=== PATIENT | female | born 1935 | race Caucasian/White ===

== ENCOUNTER 2017-12-01 08:02 | Emergency (ER) | payer MEDICARE ==
[~2017-12-01] VITALS: Ht 157.5 cm; Wt 71.0 kg
[~2017-12-01 08:02] MED LIST: AMIO200 PO; CARV3.125 PO; ECASA PO; FERR324T4 PO; FURO1TAB93 PO; MULTTAB12 PO; PANT40IN3 PO; PLAV75TA PO; POTA20IN3 PO; SIMV20TA PO
[2017-12-01 08:07] VITALS: BP 92/54; PULSE 81; RESP 16; TEMP 97.6; O2SAT 96
[2017-12-01 08:21] VITALS: PULSE 81; RESP 16; TEMP 97.6; O2SAT 96
--- NOTE | 2017-12-01 08:31 | PD ---
HPI Chief Complaint: General Weakness Time Seen by Provider: 08:17 Travel History International Travel<30 days: No Contact w/Intl Traveler<30days: No Traveled to known affect area: No History of Present Illness HPI This 81-year-old female fell and hit her head this morning. She felt the back of her head and she was bleeding. She has been feeling weak for several days. She has a history of atrial fibrillation. She said Dr. Katz and Dr. leahy in the last couple of days. She had been in atrial fibrillation and apparently came out of it but recently was found to be admitted again. She's been feeling sick for several days. She's had a cough. She vomited twice yesterday. Is not aware of fever. She did take Tylenol last night because she was coughing. She had a chest x-ray and blood work at [facility] yesterday. She has been short of breath for quite a while. She has never smoked. She does take Lasix. PFSH Past Medical History Hx Anticoagulant Therapy: Yes Arthritis: Yes Asthma: No Autoimmune Disease: No Heart Rhythm Problems: No Cancer: No Cardiovascular Problems: Yes (A. FIB) High Cholesterol: Yes Chemotherapy: No Chest Pain: No Congestive Heart Failure: No COPD: No Cerebrovascular Accident: Yes (tia) Diabetes: No Patient Takes Glucophage: No Diminished Hearing: No Endocrine: No Gastrointestinal Disorders: No GERD: No Genitourinary: No Headaches: No Hiatal Hernia: No Heparin Induced Thrombocytopen: No Hypertension: Yes Immune Disorder: No Implanted Vascular Access Dvce: No Kidney Stones: No Musculoskeletal: No Neurologic: No Psychiatric: No Reproductive: No Respiratory: No Immunizations Current: Yes Migraines: No Radiation Therapy: No Renal Failure: No Seizures: No Sickle Cell Disease: No Sleep Apnea: No Thyroid Disease: No Triglycerides - High: Yes Ulcer: No Tetanus Vaccination: < 5 Years ?: Not Menopausal: Yes Past Surgical History Abdominal Surgery: No AICD: No Appendectomy: Yes Arteriovenous Shunt: No Cardiac Surgery: No Ear Surgery: No Endocrine Surgery: No Eye Surgery: Yes (CATARACT) Genitourinary Surgery: No Gynecologic Surgery: No Insulin Pump: No Joint Replacement: No Neurologic Surgery: No Oral Surgery: No Pacemaker: No Thoracic Surgery: No Other Surgery: Yes (APPENDIX, BROKEN LEG, CATARACT SURGERY) Family History Family Hypercholesterolemia: Yes Social History Alcohol Use: No Tobacco Use: No ( A TEEN) Substance Use: No Allergies-Medications (Allergen,Severity, Reaction): Coded Allergies: No Known Allergies (Verified Adverse Reaction, Unknown, 12/01/17) Reported Meds & Prescriptions Reported Meds & Active Scripts Active Reported Potassium Chloride ER (Potassium Chloride) 20 Meq Tab 20 Meq PO DAILY [Multivitamin] Simvastatin 20 Mg Tab 20 Mg PO DAILY Lasix (Furosemide) 40 Mg Tab 40 Mg PO DAILY Coreg (Carvedilol) 6.25 Mg Tab 6.25 Mg PO BID Plavix (Clopidogrel Bisulfate) 75 Mg Tab 75 Mg PO DAILY Aspirin 325 Mg Tab 325 Mg PO DAILY Amiodarone (Amiodarone HCl) 400 Mg Tab 400 Mg PO BID Review of Systems General / Constitutional: No: Fever, Chills Eyes: No: Diploplia HENT: No: Headaches, Vertigo Cardiovascular: No: Chest Pain or Discomfort Respiratory: Positive: Cough Gastrointestinal: Positive: Vomiting Genitourinary: No: Urgency Musculoskeletal: Positive: Myalgias Skin: No Rash Neurologic: Positive: Weakness Psychiatric: No: Suicidal Ideations Endocrine: No: Heat Intolerance, Cold Intolerance Hematologic/Lymphatic: No: Easy Bruising Physical Exam Narrative GENERAL: Well-developed female SKIN: Focused skin assessment warm/dry. HEAD: . Normocephalic. He is a hematoma in the right occipital area. There is a 1 cm laceration at the site of the edges are well opposed and the area is not bleeding at this time EYES: Pupils equal and round. No scleral icterus. No injection or drainage. ENT: No nasal bleeding or discharge. Mucous membranes pink and moist. NECK: Trachea midline. No JVD. CARDIOVASCULAR: Irregular rate with systolic murmur RESPIRATORY: No accessory muscle use. Clear to auscultation. Breath sounds equal bilaterally. GASTROINTESTINAL: Abdomen soft, non-tender, nondistended. Hepatic and splenic margins not palpable. MUSCULOSKELETAL: No obvious deformities. No clubbing. No cyanosis. Trace edema. NEUROLOGICAL: Awake and alert. No obvious cranial nerve deficits. Motor grossly within normal limits. Normal speech. PSYCHIATRIC: Appropriate mood and affect; insight and judgment normal. Data Data Last Documented VS Vital Signs Date Time Temp Pulse Resp B/P (MAP) Pulse Ox O2 Delivery O2 Flow Rate FiO2 12/01/17 08:21 97.6 81 16 96 12/01/17 08:19 Room Air 12/01/17 08:07 92/54 (67) Orders Orders Complete Blood Count With Diff (12/01/17 08:28) Basic Metabolic Panel (Bmp) (12/01/17 08:28) Ct Brain W/O Iv Contrast(Rout) (12/01/17 08:28) B-Type Natriuretic Peptide (12/01/17 08:32) Labs Laboratory Tests Test 12/01/17 08:35 White Blood Count 8.6 TH/MM3 Red Blood Count 3.85 MIL/MM3 Hemoglobin 11.4 GM/DL Hematocrit 35.1 % Mean Corpuscular Volume 91.2 FL Mean Corpuscular Hemoglobin 29.5 PG Mean Corpuscular Hemoglobin Concent 32.4 % Red Cell Distribution Width 12.9 % Platelet Count 129 TH/MM3 Mean Platelet Volume 8.3 FL Neutrophils (%) (Auto) 74.3 % Lymphocytes (%) (Auto) 18.4 % Monocytes (%) (Auto) 6.3 % Eosinophils (%) (Auto) 0.5 % Basophils (%) (Auto) 0.5 % Neutrophils # (Auto) 6.5 TH/MM3 Lymphocytes # (Auto) 1.6 TH/MM3 Monocytes # (Auto) 0.5 TH/MM3 Eosinophils # (Auto) 0.0 TH/MM3 Basophils # (Auto) 0.0 TH/MM3 CBC Comment DIFF FINAL Differential Comment Blood Urea Nitrogen 30 MG/DL Creatinine 1.10 MG/DL Random Glucose 118 MG/DL Calcium Level 9.1 MG/DL Sodium Level 139 MEQ/L Potassium Level 4.3 MEQ/L Chloride Level 103 MEQ/L Carbon Dioxide Level 26.9 MEQ/L Anion Gap 9 MEQ/L Estimat Glomerular Filtration Rate 47 ML/MIN [facility] Medical Decision Making Medical Screen Exam Complete: Yes Emergency Medical Condition: Yes Medical Record Reviewed: Yes Differential Diagnosis Differential includes scalp laceration, hematoma, subdural, skull fracture, influenza, electrolyte imbalance Narrative Course CT is negative for subdural or fracture. I don't think this wound would benefit from sutures. The edges are opposed and it is not bleeding at this time. She is stable for discharge. I do believe she has influenza which is what has caused her weakness Diagnosis Primary Impression: Hematoma of scalp Qualified Codes: S00.03XA - Contusion of scalp, initial encounter Additional Instructions: Apply ice to swollen area, return if increasing pain Disposition: 01 DISCHARGE HOME Condition: Stable Godwin Smith MD Dec 01, 2017 08:31
[2017-12-01] MEDS ORDERED: PLAV75TA29 PO (08:36)
[2017-12-01] MEDS ORDERED: FURO1TAB60 PO (08:36)
[2017-12-01] MEDS ORDERED: POTA-163 PO (08:36)
[2017-12-01] MEDS ORDERED: AMIO400T PO (08:36)
[2017-12-01] MEDS ORDERED: ASPI-183 PO (08:36)
[2017-12-01] MEDS ORDERED: SIMV20TA PO (08:36)
[2017-12-01] MEDS ORDERED: CARV6.25 PO (08:36)
[2017-12-01] MEDS ORDERED: MULTIVITAMIN (08:36)
[2017-12-01 08:47] LABS: AUTOMATED NEUTROPHIL # 6.5 TH/MM3 (1.8-7.7); BASOPHIL % 0.5 % (0.0-2.0); EOSINOPHIL % 0.5 % (0.0-4.0); HEMATOCRIT 35.1 % (35.0-46.0); HEMOGLOBIN 11.4 GM/DL (11.6-15.3); LYMPH % 18.4 % (9.0-44.0); LYMPHOCYTE # 1.6 TH/MM3 (1.0-4.8); MEAN CELL VOLUME 91.2 FL (80.0-100.0); MEAN CORPUSCULAR HEMOGLOBIN 29.5 PG (27.0-34.0); MEAN CORPUSCULAR HGB CONC 32.4 % (32.0-36.0); MEAN PLATELET VOLUME 8.3 FL (7.0-11.0); MONO % 6.3 % (0.0-8.0); MONOCYTE # 0.5 TH/MM3 (0-0.9); NEUT % 74.3 % (16.0-70.0); PLATELET COUNT 129 TH/MM3 (150-450); RED BLOOD COUNT 3.85 MIL/MM3 (4.00-5.30); RED CELL DISTRIBUTION WIDTH 12.9 % (11.6-17.2); WHITE BLOOD COUNT 8.6 TH/MM3 (4.0-11.0)
--- NOTE | 2017-12-01 08:51 | RADRPT ---
EXAM DATE/TIME: 12/01/2017 08:37 [facility] COMPARISON: CT BRAIN W/O CONTRAST, February 22, 2016, 15:17. INDICATIONS : Trauma. Fell and hit back of head this morning. Laceration. RADIATION DOSE: 60.26 CTDIvol (mGy) MEDICAL HISTORY : Cerebrovascular disease. Cardiovascular disease Hypertension. SURGICAL HISTORY : Appendectomy. ENCOUNTER: Initial ACUITY: 1 day PAIN SCALE: 4/10 LOCATION: cranial TECHNIQUE: Multiple contiguous axial images were obtained of the head. Using automated exposure control and adj ustment of the mA and/or kV according to patient size, radiation dose was kept as low as reasonably a chievable to obtain optimal diagnostic quality images. DICOM format image data is available electro nically for review and comparison. FINDINGS: CEREBRUM: Areas of low attenuation in the periventricular white matter. Old right basal ganglia lacunar infarct s. The ventricles are normal for age. No evidence of midline shift, mass lesion, hemorrhage or acute infarction. No extra-axial fluid collections are seen. POSTERIOR FOSSA: The cerebellum and brainstem are intact. The 4th ventricle is midline. The cerebellopontine angle i s unremarkable. EXTRACRANIAL: The visualized portion of the orbits is intact. Right parietal scalp hematoma. SKULL: The calvaria is intact. No evidence of skull fracture. CONCLUSION: 1. Right parietal scalp hematoma. 2. Nonspecific white matter changes. 3. Old lacunar infarcts on the right. Markel Cantor MD on December 01, 2017 at 8:47 Board Certified Radiologist. This report was verified electronically.
[2017-12-01 08:53] LABS: CALCIUM 9.1 MG/DL (8.5-10.1)
[2017-12-01 08:54] LABS: BICARBONATE 26.9 MEQ/L (21.0-32.0)
[2017-12-01 08:57] LABS: CREATININE 1.1 MG/DL (0.50-1.00)
[2017-12-01 09:18] VITALS: BP 119/43
== END 2017-12-01 09:31 | disposition home or self-care (01) ==
LOC: PHED 08:02
DX: S00.03XA Contusion of scalp, initial encounter (principal); I48.91 Unspecified atrial fibrillation; E78.00 Pure hypercholesterolemia, unspecified; I10 Essential (primary) hypertension; R06.02 Shortness of breath; W19.XXXA Unspecified fall, initial encounter
CPT/HCPCS: 70450; 80048; 83880; 85025; 99284

== ENCOUNTER 2017-12-01 13:59 | Observation (INO) | payer MEDICARE ==
[~2017-12-01] VITALS: Ht 157.5 cm; Wt 73.2 kg
[~2017-12-01 13:59] MED LIST changes: +AMIO400T PO; +ASPI-183 PO; +CARV6.25 PO; +FURO1TAB60 PO; +MULTIVITAMIN; +PLAV75TA29 PO; +POTA-163 PO
[2017-12-01 14:10] VITALS: BP 120/60; PULSE 80; RESP 16; TEMP 97.8; O2SAT 93
--- NOTE | 2017-12-01 14:54 | PD ---
HPI Chief Complaint: Fall Time Seen by Provider: 14:18 Travel History International Travel<30 days: No Contact w/Intl Traveler<30days: No Traveled to known affect area: No History of Present Illness HPI The patient was seen and examined in the presence of the nurse. This patient was seen here this morning when she had a fall and struck her head. It was unclear as to why she had that fall. She was discharged home around 10 AM. About 4 hours later she was in her bathroom and got dizzy and lightheaded and collapsed. She struck her chin on the ground. She denies LOC. She is positive she was awake during the whole event. She does not have headache or neck pain at this time. She does have history of A. fib. Currently she is on aspirin and Plavix therapy. She saw her window/distribution clerk yesterday and was getting switched to a novel anticoagulant which she has not started yet. She did not have any chest pain. Severity is moderate. Duration 5 minutes. No alleviating factors. No exacerbating factors. PFSH Past Medical History Hx Anticoagulant Therapy: Yes (PLAVIX) Arthritis: Yes Asthma: No Autoimmune Disease: No Heart Rhythm Problems: No Cancer: No Cardiovascular Problems: Yes (A.FIB, CHOL) High Cholesterol: Yes Chemotherapy: No Chest Pain: No Congestive Heart Failure: No COPD: No Cerebrovascular Accident: Yes (tia) Diabetes: No Patient Takes Glucophage: No Diminished Hearing: No Endocrine: No Gastrointestinal Disorders: No GERD: No Genitourinary: No Headaches: No Hiatal Hernia: No Heparin Induced Thrombocytopen: No Hypertension: Yes Immune Disorder: No Implanted Vascular Access Dvce: No Kidney Stones: No Musculoskeletal: No Neurologic: No Psychiatric: No Reproductive: No Respiratory: No Immunizations Current: Yes Migraines: No Radiation Therapy: No Renal Failure: No Seizures: No Sickle Cell Disease: No Sleep Apnea: No Thyroid Disease: No Triglycerides - High: Yes Ulcer: No Tetanus Vaccination: < 5 Years ?: Not Menopausal: Yes Past Surgical History Abdominal Surgery: No AICD: No Appendectomy: Yes Arteriovenous Shunt: No Cardiac Surgery: No Ear Surgery: No Endocrine Surgery: No Eye Surgery: Yes (CATARACT) Genitourinary Surgery: No Gynecologic Surgery: No Insulin Pump: No Joint Replacement: No Neurologic Surgery: No Oral Surgery: No Pacemaker: No Thoracic Surgery: No Other Surgery: Yes (APPENDIX, BROKEN LEG, CATARACT SURGERY) Family History Family Hypercholesterolemia: Yes Social History Alcohol Use: No Tobacco Use: No ( A TEEN) Substance Use: No Allergies-Medications (Allergen,Severity, Reaction): Coded Allergies: No Known Allergies (Verified Adverse Reaction, Unknown, 12/01/17) Reported Meds & Prescriptions Reported Meds & Active Scripts Active Reported Potassium Chloride ER (Potassium Chloride) 20 Meq Tab 20 Meq PO DAILY [Multivitamin] Simvastatin 20 Mg Tab 20 Mg PO DAILY Lasix (Furosemide) 40 Mg Tab 40 Mg PO DAILY Coreg (Carvedilol) 6.25 Mg Tab 6.25 Mg PO BID Plavix (Clopidogrel Bisulfate) 75 Mg Tab 75 Mg PO DAILY Aspirin 325 Mg Tab 325 Mg PO DAILY Amiodarone (Amiodarone HCl) 400 Mg Tab 400 Mg PO BID Review of Systems General / Constitutional: No: Fever Eyes: No: Visual changes HENT: Positive: Lightheadedness, No: Headaches Cardiovascular: Positive: Irregular Rhythm, No: Chest Pain or Discomfort Respiratory: No: Shortness of Breath Gastrointestinal: No: Abdominal Pain Genitourinary: No: Dysuria Musculoskeletal: Positive: Weakness, No: Pain Skin: No Rash Neurologic: Positive: Weakness, Dizziness Psychiatric: No: Depression Endocrine: No: Polydipsia Hematologic/Lymphatic: No: Easy Bruising Physical Exam Narrative GENERAL: Well-nourished, well-developed patient in no apparent distress. SKIN: Focused skin assessment reveals no rash and nodules. Skin is Warm and dry. HEAD: Has a posterior scalp hematoma. Normocephalic. There is a linear abrasion on her chin. No bony crepitus or instability. EYES: Pupils equal and round. No scleral icterus. No injection or drainage. ENT: No nasal bleeding or discharge. Mucous membranes pink and moist. Has a bruise on the inside of her lower lip but no laceration to repair. NECK: Trachea midline. No JVD. No midline tenderness CARDIOVASCULAR: Irregularly irregular rhythm. No murmur appreciated. RESPIRATORY: No accessory muscle use. Clear to auscultation. Breath sounds equal bilaterally. GASTROINTESTINAL: Abdomen soft, non-tender, nondistended. Hepatic and splenic margins not palpable. MUSCULOSKELETAL: No obvious deformities. No clubbing. No cyanosis. No edema. NEUROLOGICAL: Awake and alert. No obvious cranial nerve deficits. Motor grossly within normal limits. Normal speech. PSYCHIATRIC: Appropriate mood and affect; insight and judgment normal. Data Data Last Documented VS Vital Signs Date Time Temp Pulse Resp B/P (MAP) Pulse Ox O2 Delivery O2 Flow Rate FiO2 12/01/17 14:16 16 93 Nasal Cannula 2.00 12/01/17 14:10 97.8 80 120/60 (80) MDM Medical Decision Making Medical Screen Exam Complete: Yes Emergency Medical Condition: Yes Medical Record Reviewed: Yes Differential Diagnosis Cardiac arrhythmia, A. fib with RVR, vasovagal episode, Narrative Course I have reviewed the patient's electronic medical record. Reviewed her visit from a few hours ago including lab studies and brain CT IV placed Patient is neurologically intact. We have lab studies from a few hours ago which I don't feel nearly repeated She had 2 near syncopal events today with fall and head injury in a frail 81- year-old who lives alone. May have been arrhythmia. At this point she is in A. fib and rate controlled I think she should be a telemetry observation. Call placed to [facility] to discuss. Diagnosis Primary Impression: Syncope, near Additional Impressions: Multiple falls Atrial fibrillation Qualified Codes: I48.2 - Chronic atrial fibrillation Admitting Information Admitting Physician Requests: Observation Abdirahman Coppola MD Dec 01, 2017 14:54
[2017-12-01 15:20] VITALS: BP 120/48; PULSE 85; RESP 18; O2SAT 99
[2017-12-01] MEDS ORDERED: SODIUM CHLORIDE 0.9% FLUSH 10 ML FLUSH IV FLUSH PRN (17:30)
[2017-12-01 17:54] VITALS: O2SAT 99
[2017-12-01 20:00] VITALS: BP 135/61; PULSE 88; RESP 20; TEMP 100.8; O2SAT 97; O2SAT 98
[2017-12-01] MEDS: CARVEDILOL 6.25 MG TAB PO SCH (20:53)
[2017-12-01] MEDS: SODIUM CHLORIDE 0.9% FLUSH 10 ML FLUSH IV FLUSH SCH (20:54)
[2017-12-01] MEDS: APIXABAN 5 MG TABLET PO SCH (20:54)
--- NOTE | 2017-12-01 21:58 | MH ---
cc: YUSUF DSOUZA M.D. DATE OF ADMISSION: 12/01/2017 ADMITTING DIAGNOSIS: Near syncope with multiple falls. HISTORY OF PRESENT ILLNESS Ms. Hernandez is an 81-year-old female who presented to the emergency room twice in the course of the day today. She states that initially this morning she got up to make coffee. She was actually feeling very tired and very weak. She states that as she was standing at the counter, getting ready to add sweetener to her coffee, she suddenly went down. She states that she is not sure how this happened. One minute she is standing at the counter, the next thing she is on the ground. She denies any actual loss of consciousness. She states that she was so weak she was really unable to get up from the floor. She was finally able to drag herself across to the phone and call a relative to come and help her. When she fell she hit her head and was bleeding quite significantly so she came to the emergency room to be evaluated. She states that aside from this weakness and this cough that she has had for a while now, she has had no other symptoms. In the emergency room she was evaluated and lab work did not show anything significant except for mild anemia and some renal insufficiency, and a slightly elevated BNP. CT scan that was done showed a right parietal scalp hematoma with lacunar infarcts on the right. At that time the patient felt well enough to go home and she was discharged with instructions to return if she should start feeling dizzy or weak again. The patient says that she went home. She took her morning medications. She did have some diarrhea, was in the bathroom, cleaning herself up when she states her arm was on the sink, and she was bending over cleaning herself when the next thing she knew she was back on the ground again, and again hit her head. Again she was too weak to get up and her son and the paramedics had to get her up with assistance. She states the only time she felt this way was a little bit over a year ago when she was seen at the [facility] for these episodes of weakness. She says at that time the cause was never really determined. She was seen by cardiology, went to the [facility] group therapy counselor yesterday and was diagnosed with A-fib. Her rate was controlled and she was to be starting on Eliquis which she had not started. She is already on Plavix and aspirin for prior CVA. She denies any numbness or tingling with these episodes. Her only complaint as stated is dry cough that she has had recently as well as just profound weakness. Aside from the episode of diarrhea that she had when she went home this morning, she denies any other GI problems to me. PAST MEDICAL HISTORY: Significant for: 1. Aortic stenosis which on echo has been mild. 2. Recent atrial fibrillation. 3. Coronary artery disease. 4. CVA. 5. CKD 3, with her last GFR of 52, per the office records. 6. Hypertension. 7. Hyperlipidemia. 8. 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 PAST SURGICAL HISTORY: 1. Appendectomy. 2. Cataract surgery. 3. CABG x2. ALLERGIES: Denies MEDICATIONS: From the [facility], she does not recall her medications. 1. Coreg 12.5. 2. She has a prescription for Eliquis 5 milligrams twice a day which she has not filled. 3. She is still taking her Plavix and aspirin. 4. Furosemide 40 milligrams daily. 5. Lisinopril 20 milligrams twice a day. 6. Potassium chloride 20 milliequivalents daily. 7. Simvastatin 20 milligrams daily. 8. Voltaren gel which she uses occasionally. HABITS She will drink one to two cups of coffee a day. She denies any current smoking. She does not really consume alcohol. SOCIAL HISTORY She is . She is independent in activities of daily living. She has a very good family support system with children and grandchildren locally. REVIEW OF SYSTEMS: See HPI. As stated, fatigue. She denies any weight change. Her appetite overall has been good. She denies any chest pain. She really does not get palpitations. She does state she feels a couple but she really does not feel when she is in atrial fibrillation. She does not really describe shortness of breath but she has had this cough recently, worse at night. No abdominal pain. She did have the diarrhea. She denies any lower extremity swelling. PHYSICAL EXAMINATION: VITAL SIGNS: Temperature is 97.6, pulse 81, respiratory rate 16, blood pressure 119/43, pulse oximetry is 96% on room air. GENERAL: She is alert, oriented, very pleasant, lying in the hospital bed, in no acute distress. HEENT: She has a very large scalp laceration, posterior parietal region. This looks clean right now. It has a little bit of oozing. She has a clear moist oropharynx with dentures. NECK: Supple. HEART: Irregular. Systolic ejection murmur throughout the precordium. ABDOMEN: Good bowel sounds in all four quadrants. EXTREMITIES: No clubbing, cyanosis or edema. SKIN: She does have some ecchymosis on her lower chin and lips. ASSESSMENT AND PLAN: The patient is an 81 year-old female with recurrent episodes of presyncope resulting in fall and injury over the last couple of days. She does have newly diagnosed afternoon which up until now has appeared to be rate controlled. She has been admitted to be placed on the monitor. Will monitor her overnight for any arrhythmia. Will order an echocardiogram. Will order CTA to evaluate carotids and the subclavian artery. For her hypertension, she already took her medications today. Will monitor her blood pressure. I do not think she is having any hypotensive episodes. She had not taken her blood pressure medications this morning with her first episode. For the atrial fibrillation, as stated, so far she has been rate controlled and not using medications. Of note, she was on amiodarone postoperatively after her CABG, but this had been discontinued. She already took her Plavix and aspirin this morning. Will start her on Eliquis in the a.m. given her recent fall and head injury. Further recommendations as the case develops. MD JAYLENE Guevara/SANDEEP /7:58 PM /9:15 PM
[2017-12-01] MEDS ORDERED: IOHEXOL 350 MG/ML 10 ML VIAL (for RAD DIAG) IVCONTRAST ONE (23:04)
[2017-12-02] VITALS (9 sets, daily range): BP systolic 87–127; BP diastolic 49–66; PULSE 68–98; RESP 16–22; TEMP 97.2–100.8; O2SAT 92–98
--- NOTE | 2017-12-02 00:05 | RADRPT ---
EXAM DATE/TIME: 12/01/2017 22:46 [facility] COMPARISON: No previous studies available for comparison. INDICATIONS : Syncopal episode. Evaluate for subclavian stenosis. IV CONTRAST: 70 cc Omnipaque 350 (iohexol) IV RADIATION DOSE: 42.95 CTDIvol (mGy) MEDICAL HISTORY : Cerebrovascular disease. Hypertension. SURGICAL HISTORY : None. ENCOUNTER: Initial ACUITY: 1 day PAIN SCALE: 0/10 LOCATION: neck Elevated flow velocities and ICA/CCA ratios have been found to correlate with increased degrees of vessel stenosis, calculated as percentage of diameter relative to a normal segment of distal ICA/CCA. TECHNIQUE: Volumetric scanning was performed using a multirow detector CT scanner. The data was post processed with a variety of visualization algorithms including full-volume maximum intensity projection, multip lanar sliding thin-slab reformation, curved-planar reformation, and surface-rendering techniques. Us ing automated exposure control and adjustment of the mA and/or kV according to patient size, radiatio n dose was kept as low as reasonably achievable to obtain optimal diagnostic quality images. DICOM f ormat image data is available electronically for review and comparison. FINDINGS: No abnormality is identified within the lung apices. There is bovine origin of vessels from the arch without evidence of proximal stenosis. The left vertebral artery is dominant. There is stenosis invol ving the distal left vertebral artery of 60-70%. This is in the dominant vertebral artery. Examination of the right common carotid artery demonstrates the vessel to be widely patent. There is 20-30% stenosis at the origin of the right internal carotid artery with calcific plaque present. More distally the cervical internal carotid artery is intact. Examination of the left common carotid artery demonstrates the vessel to be widely patent. There is 1 0-20% stenosis at the origin of the internal carotid artery with calcific plaque present. More distal ly the cervical internal carotid artery is intact. Percent stenosis is calculated using the diameter of the stenotic region over the diameter of the nor mal distal internal carotid artery. CONCLUSION: 1. No evidence of hemodynamic significant lesion. There is There is 20-30% stenosis on the right and There is 10-20% stenosis on the left. 2. There is 60-70% stenosis in the distal left vertebral artery which is dominant. Fortino Nuno MD on December 01, 2017 at 23:58 Board Certified Radiologist. This report was verified electronically.
[2017-12-02 06:38] LABS: AUTOMATED NEUTROPHIL # 2.7 TH/MM3 (1.8-7.7); BASOPHIL % 0.4 % (0.0-2.0); EOSINOPHIL % 0.4 % (0.0-4.0); HEMATOCRIT 30.3 % (35.0-46.0); HEMOGLOBIN 9.6 GM/DL (11.6-15.3); LYMPHOCYTE # 1.8 TH/MM3 (1.0-4.8); MEAN CELL VOLUME 91.2 FL (80.0-100.0); MEAN CORPUSCULAR HEMOGLOBIN 29.1 PG (27.0-34.0); MEAN CORPUSCULAR HGB CONC 31.9 % (32.0-36.0); MEAN PLATELET VOLUME 8.3 FL (7.0-11.0); MONO % 14.1 % (0.0-8.0); MONOCYTE # 0.7 TH/MM3 (0-0.9); NEUT % 50.1 % (16.0-70.0); PLATELET COUNT 103 TH/MM3 (150-450); RED BLOOD COUNT 3.32 MIL/MM3 (4.00-5.30); RED CELL DISTRIBUTION WIDTH 12.5 % (11.6-17.2); WHITE BLOOD COUNT 5.2 TH/MM3 (4.0-11.0)
--- NOTE | 2017-12-02 07:45 | PD.CONS ---
HPI Consult Requested By Primary Care Physician Adeola Thomas MD History of Present Illness 81-year-old female with a past medical history of mild , A. fib, CAD status post CABG 07/07, history of CVA, CAD, HTN, HLD who presented after near syncopal episodes. The patient had 2 episodes of near syncope yesterday. For the first episode she felt weak and fell to the ground. She doesn't recall losing consciousness. The second episode she felt faint and dizzy prior to falling. She does not think she lost consciousness. She denies any chest pain, shortness of breath, or palpitations with the episodes. Overnight, telemetry continues to show rate controlled A. fib and showed a single 5 beat run NSVT, the patient does feel like she might have felt a run of palpitations overnight. She does feel like she is wheezing today and denies any history of lung disease. She has had some fever overnight. Orthostatic BPs positive this a.m. (Mickey Dorado) Review of Systems Negative except as stated in the history of present illness (Mickey Dorado) Past Family Social History Allergies: Coded Allergies: No Known Allergies (Verified Allergy, Unknown, 12/01/17) Past Medical History 1. Aortic stenosis which on echo has been mild. 2. Recent atrial fibrillation. 3. Coronary artery disease. 4. CVA. 5. CKD 3, with her last GFR of 52, per the office records. 6. Hypertension. 7. Hyperlipidemia. 8. 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 Past Surgical History 1. Appendectomy. 2. Cataract surgery. 3. Cardiac catheterization 07/07 with subsequent CABG x2. Reported Medications Reported Meds & Active Scripts Active Reported Potassium Chloride ER (Potassium Chloride) 20 Meq Tab 20 Meq PO DAILY [Multivitamin] Simvastatin 20 Mg Tab 20 Mg PO DAILY Lasix (Furosemide) 40 Mg Tab 40 Mg PO DAILY Coreg (Carvedilol) 6.25 Mg Tab 6.25 Mg PO BID Plavix (Clopidogrel Bisulfate) 75 Mg Tab 75 Mg PO DAILY Aspirin 325 Mg Tab 325 Mg PO DAILY Active Ordered Medications Current Medications Medications (Trade) Dose Ordered Sig/Shawn Route Start Time Stop Time Status Last Admin (NS Flush) 2 ml UNSCH PRN IV FLUSH 12/01/17 17:30 (NS Flush) 2 ml BID IV FLUSH 12/01/17 21:00 12/01/17 20:54 Sodium Chloride 1,000 ml @ 84 mls/hr [id number] IV 12/01/17 20:00 (Coreg) 12.5 mg BID PO 12/01/17 21:00 12/01/17 20:53 (Lasix) 40 mg DAILY PO 12/02/17 09:00 (KCl) 20 meq DAILY PO 12/02/17 09:00 (Pravachol) 40 mg DAILY PO 12/02/17 09:00 (Eliquis) 5 mg BID PO 12/01/17 21:00 12/01/17 20:54 Family History Noncontributory Social History She is . She is independent in activities of daily living. She has a very good family support system with children and grandchildren locally. She will drink one to two cups of coffee a day. She denies any current smoking. She does not really consume alcohol. (Mickey Dorado) Physical Exam Vital Signs Vital Signs Date Time Temp Pulse Resp B/P (MAP) Pulse Ox O2 Delivery O2 Flow Rate FiO2 12/02/17 04:00 100.8 88 16 114/62 (79) 93 116/56 (76) 87/51 (63) 12/02/17 00:00 100.7 90 22 100/49 (66) 98 12/01/17 20:00 98 Nasal Cannula 2.00 12/01/17 20:00 100.8 88 20 135/61 (85) 97 12/01/17 17:54 99 High Flow Nasal Cannula 2.00 12/01/17 16:15 12/01/17 15:20 85 18 120/48 (72) 99 Nasal Cannula 2.00 12/01/17 14:16 16 93 Nasal Cannula 2.00 12/01/17 14:10 91 Nasal Cannula 2.00 12/01/17 14:10 97.8 80 16 120/60 (80) 93 Physical Exam GENERAL: Well-developed well-nourished. In no acute distress. NECK: No carotid bruits. No JVD. CARDIOVASCULAR: Regular rate and rhythm. Systolic murmur best appreciated at the apex. RESPIRATORY: No accessory muscle use. Diffuse wheezing worse on the left. MUSCULOSKELETAL: No clubbing or cyanosis. No edema. NEUROLOGICAL: Awake and alert. Normal speech. Laboratory Laboratory Tests Test 12/01/17 18:23 12/02/17 00:15 12/02/17 05:47 Troponin I LESS THAN 0.02 LESS THAN 0.02 White Blood Count 5.2 Red Blood Count 3.32 Hemoglobin 9.6 Hematocrit 30.3 Mean Corpuscular Volume 91.2 Mean Corpuscular Hemoglobin 29.1 Mean Corpuscular Hemoglobin Concent 31.9 Red Cell Distribution Width 12.5 Platelet Count 103 Mean Platelet Volume 8.3 Neutrophils (%) (Auto) 50.1 Lymphocytes (%) (Auto) 35.0 Monocytes (%) (Auto) 14.1 Eosinophils (%) (Auto) 0.4 Basophils (%) (Auto) 0.4 Neutrophils # (Auto) 2.7 Lymphocytes # (Auto) 1.8 Monocytes # (Auto) 0.7 Eosinophils # (Auto) 0.0 Basophils # (Auto) 0.0 CBC Comment DIFF FINAL Differential Comment (Mickey Dorado) Result Diagram: 12/02/17 0547 Assessment and Plan Assessment and Plan 81-year-old female with a past medical history of mild , A. fib, CAD status post CABG 07/07, history of CVA, CAD, HTN, HLD who presented after 2 near syncopal episodes Syncope: Possibly due to orthostasis, hold Lasix. Check echo. NSVT: 5 beat run. Ischemic evaluation with Lexiscan when wheezing improved, possibly tomorrow. Atrial fibrillation: Rate controlled. Carvedilol and Eliquis. Fever/wheezing: Nebs. Check chest x-ray. Antibiotics per primary team. (Mickey Dorado) Assessment and Plan plan for stress test tomorrow probable syncope due to orthostatic hypotension. hydration. FU 2d echo. + murmur. afib rate controlled. (Anup Barragan MD) Mickey Dorado Dec 02, 2017 07:45 Anup Barragan MD Dec 02, 2017 11:30
[2017-12-02] MEDS ORDERED: RESP: ALBUTEROL 2.5 MG/IPRATROPIUM 0.5 MG NEB (SCH) NEB ONE (08:00)
[2017-12-02] MEDS ORDERED: FUROSEMIDE 40 MG TAB PO SCH (09:00)
[2017-12-02 09:10] LABS: BICARBONATE 25.7 MEQ/L (21.0-32.0); CALCIUM 7.9 MG/DL (8.5-10.1); CREATININE 0.99 MG/DL (0.50-1.00)
--- NOTE | 2017-12-02 09:53 | RADRPT ---
EXAM DATE/TIME: 12/02/2017 08:29 [facility] COMPARISON: CHEST SINGLE AP, July 18, 2016, 5:32. INDICATIONS : Short of breath. MEDICAL HISTORY : Cardiovascular disease. Cerebrovascular disease. Hypertension. SURGICAL HISTORY : CABG. ENCOUNTER: Subsequent ACUITY: 2 days PAIN SCORE: 0/10 LOCATION: Bilateral chest FINDINGS: A single view of the chest demonstrates the lungs to be symmetrically aerated without evidence of mas s, infiltrate or effusion. Postsurgical features of prior median sternotomy. Cardiac silhouette is oumou rderline in size. Osseous structures are intact. CONCLUSION: 1. No acute cardiopulmonary disease. Van Christensen MD on December 02, 2017 at 9:50 Board Certified Radiologist. This report was verified electronically.
[2017-12-02] MEDS: PRAVASTATIN SOD 40 MG TAB PO SCH (10:22)
[2017-12-02] MEDS: POTASSIUM CHLORIDE 20 MEQ CONTROLLED RELEASE TAB PO SCH (10:22)
[2017-12-02] MEDS: APIXABAN 5 MG TABLET PO SCH ×2 (10:23→21:38)
[2017-12-02] MEDS: SODIUM CHLORIDE 0.9% FLUSH 10 ML FLUSH IV FLUSH SCH ×2 (10:23→21:32)
[2017-12-02] MEDS: SODIUM CHLOR 0.9% 1000 ML INJ 1,000 ML IV SCH ×3 (10:23→14:56)
[2017-12-02] MEDS: CARVEDILOL 6.25 MG TAB PO SCH ×2 (10:23→21:37)
[2017-12-02 11:06] LABS: BILIRUBIN, URINE NEG (NEG); BLOOD, URINE NEG (NEG); GLUCOSE,URINE NEG (NEG); KETONE, URINE TRACE mg/dL (NEG); NITRITE,URINE NEG (NEG); URINE LEUKOCYTE ESTERASE NEG (NEG)
[2017-12-02 11:27] LABS: URINE COLOR YELLOW (YELLW/STRAW)
[2017-12-02 11:28] LABS: SQUAMOUS EPITHELIAL CELL URINE 0-5 /hpf (0-5)
--- NOTE | 2017-12-02 13:11 | ECHRPT ---
Indication: SYNCOPE CONCLUSIONS The left ventricular systolic function is hyperdynamic with an estimated ejection fraction in the ra nge of 65- 70%. The left atrial size is upper limits of normal. Mild thickening of the mitral valve leaflets. Moderate mitral annular calcification. Trace mitral valve regurgitation. Mild mitral valve stenosis. Severe thickening of the aortic valve leaflets. Moderate aortic valve regurgitation. Mild aortic valve stenosis. There is trace tricuspid valve regurgitation. There is estimated mild pulmonary hypertension present (range 40-50 mmHg). BP: 87 / 51 HR: 63 Rhythm: Sinus MEASUREMENTS (Male / Female) Normal Values Technical Quality:Fair 2D ECHO LV Diastolic Diameter PLAX 4.0 cm 4.2 - 5.9 / 3.9 - 5.3 cm LV Systolic Diameter PLAX 2.4 cm IVS Diastolic Thickness 1.1 cm 0.6 - 1.0 / 0.6 - 0.9 cm LVPW Diastolic Thickness 1.1 cm 0.6 - 1.0 / 0.6 - 0.9 cm LV Relative Wall Thickness 0.6 RV Internal Dim ED PLAX 3.1 cm LVOT Diameter 1.8 cm LA Systolic Diameter LX 3.9 cm 3.0 - 4.0 / 2.7 - 3.8 cm LV Ejection Fraction MOD 4C 68.6 % LV Cardiac Index MOD 4C 834.5 cm/minm LV Ejection Fraction 4C AL 72.2 % LV Cardiac Index 4C AL 920.7 cm/minm M-MODE Aortic Root Diameter MM 2.6 cm LA Systolic Diameter MM 3.8 cm LA Ao Ratio MM 1.5 AV Cusp Separation MM 0.8 cm DOPPLER AV Peak Velocity 295.5 cm/s AV Peak Gradient 34.9 mmHg AV Mean Gradient 16.0 mmHg AV Velocity Time Integral 50.5 cm AI Peak Velocity 375.5 cm/s AI Peak Gradient 56.4 mmHg AI Pressure Half Time 410.0 ms LVOT Peak Velocity 90.2 cm/s LVOT Peak Gradient 3.3 mmHg LVOT Velocity Time Integral 18.4 cm LVOT Cardiac Index 1628.0 cm/minm AV Area Cont Eq vti 0.9 cm AV Area Cont Eq pk 0.8 cm MV Peak Velocity 218.0 cm/s MV Peak Gradient 19.0 mmHg MV Mean Velocity 97.4 cm/s MV Mean Gradient 5.0 mmHg MV Area PHT 2.4 cm LV E' Lateral Velocity 7.1 cm/s LV E' Septal Velocity 6.0 cm/s TR Peak Velocity 289.0 cm/s TR Peak Gradient 33.4 mmHg Right Atrial Pressure 10.0 mmHg Pulmonary Artery Systolic Pressu 43.4 mmHg Right Ventricular Systolic Press 43.4 mmHg PV Peak Velocity 88.2 cm/s PV Peak Gradient 3.1 mmHg FINDINGS LEFT VENTRICLE The left ventricular systolic function is hyperdynamic with an estimated ejection fraction in the ra nge of 65- 70%. Normal left ventricular size. Wall thickness is normal. No regional wall motion abnormalities are present. RIGHT VENTRICLE Normal right ventricular size and systolic function. LEFT ATRIUM The left atrial size is upper limits of normal. RIGHT ATRIUM The right atrial size is normal. ATRIAL SEPTUM Normal atrial septal thickness without atrial level shunting by limited color doppler interrogation. AORTA The aortic root and proximal ascending aorta are normal in size on limited imaging. MITRAL VALVE Mild thickening of the mitral valve leaflets. Moderate mitral annular calcification. Trace mitral valve regurgitation. Mild mitral valve stenosis. AORTIC VALVE Trileaflet aortic valve. Severe thickening of the aortic valve leaflets. Moderate aortic valve regurgitation. Mild aortic valve stenosis. TRICUSPID VALVE Structurally normal tricuspid valve. There is trace tricuspid valve regurgitation. There is estimated mild pulmonary hypertension present (range 40-50 mmHg). PULMONARY VALVE No pulmonary valve regurgitation or stenosis. VESSELS The inferior vena cava is normal in size. PERICARDIUM No pericardial effusion. Anup Barragan MD, FACC (Electronically Signed) Final Date:02 December 2017 13:10
[2017-12-02] MEDS ORDERED: SODIUM CHLOR 0.9% 1000 ML INJ 1,000 ML IV SCH (17:00)
--- NOTE | 2017-12-02 17:35 | HHI.PR ---
Subjective Remarks Wheezing last pm, still with nonproductive cough, low grade temp last night, no further diarrhea, no nausea or vomiting, no cp Objective Vitals Vital Signs Date Time Temp Pulse Resp B/P (MAP) Pulse Ox O2 Delivery O2 Flow Rate FiO2 12/02/17 15:31 85 12/02/17 12:00 98.8 68 20 109/57 (74) 92 12/02/17 09:00 97.2 81 20 116/66 (83) 93 12/02/17 08:37 92 21 12/02/17 08:23 96 12/02/17 04:00 100.8 88 16 114/62 (79) 93 116/56 (76) 87/51 (63) 12/02/17 00:00 100.7 90 22 100/49 (66) 98 12/01/17 20:00 98 Nasal Cannula 2.00 12/01/17 20:00 100.8 88 20 135/61 (85) 97 12/01/17 17:54 99 High Flow Nasal Cannula 2.00 12/02/17 12/02/17 12/03/17 15:00 23:00 07:00 Intake Total 725 ml Balance 725 ml Intake Oral 725 ml # Voids 2 # Bowel Movements 0 Result Diagram: 12/02/17 0547 12/02/17 0547 Imaging Last Impressions Chest X-Ray 12/02/17 0000 Signed Impressions: Service Date/Time: November 08:29 - CONCLUSION: 1. No acute cardiopulmonary disease. Van Christensen MD Neck CTA 12/01/17 0000 Signed Impressions: Service Date/Time: Friday, December 01, 2017 22:46 - CONCLUSION: 1. No evidence of hemodynamic significant lesion. There is There is 20-30%% stenosis on the right and There is 10-20%% stenosis on the left. 2. There is 60-70%% stenosis in the distal left vertebral artery which is dominant. Fortino Nuno MD Objective Remarks Lying in bed lungs cta hear rrr elle 2/6 +bs no c/c/e A/P Problem List: (1) (aortic stenosis) ICD Codes: I35.0 - Nonrheumatic aortic (valve) stenosis Status: Chronic Plan: mild per echo with severe thickening of leaflets (2) Blood loss anemia ICD Codes: D50.0 - Iron deficiency anemia secondary to blood loss (chronic) Status: Acute Plan: drop in hgb after multiple falls and laceration and hematoma of scalp monitor cbc (3) Syncope, near ICD Codes: R55 - Syncope and collapse Status: Acute Plan: cta unrevealing as to cause postive orthostatics this am, is on furosemide and had diarrhea yesterday, furosemide held, iv fluids had been ordered lexiscan in am (4) Multiple falls ICD Codes: R29.6 - Repeated falls Status: Acute Plan: PT eval done will need [facility] for PT (5) Atrial fibrillation ICD Codes: I48.91 - Unspecified atrial fibrillation Status: Acute Plan: so far rate controlled start eliquis started in am follow cbc and lexiscan Problem Qualifiers (1) Atrial fibrillation: Qualified Codes: I48.2 - Chronic atrial fibrillation Adeola Thomas MD Dec 02, 2017 17:35
[2017-12-02 19:15] LABS: AUTOMATED NEUTROPHIL # 2.7 TH/MM3 (1.8-7.7); BASOPHIL # 0.1 TH/MM3 (0-0.2); BASOPHIL % 1.2 % (0.0-2.0); EOSINOPHIL # 0.1 TH/MM3 (0-0.4); EOSINOPHIL % 1.9 % (0.0-4.0); HEMATOCRIT 31.8 % (35.0-46.0); HEMOGLOBIN 10.1 GM/DL (11.6-15.3); LYMPH % 36.9 % (9.0-44.0); LYMPHOCYTE # 2.2 TH/MM3 (1.0-4.8); MEAN CELL VOLUME 91.1 FL (80.0-100.0); MEAN CORPUSCULAR HEMOGLOBIN 28.9 PG (27.0-34.0); MEAN CORPUSCULAR HGB CONC 31.7 % (32.0-36.0); MEAN PLATELET VOLUME 8.2 FL (7.0-11.0); MONO % 11.5 % (0.0-8.0); MONOCYTE # 0.7 TH/MM3 (0-0.9); NEUT % 48.5 % (16.0-70.0); PLATELET COUNT 110 TH/MM3 (150-450); RED BLOOD COUNT 3.49 MIL/MM3 (4.00-5.30); RED CELL DISTRIBUTION WIDTH 12.6 % (11.6-17.2); WHITE BLOOD COUNT 5.8 TH/MM3 (4.0-11.0)
--- NOTE | 2017-12-02 20:49 | MG ---
cc: HERNANDEZ THORPE MD Lab No: Date: 12/02/17 Age: Sex: F Race: DATE OF [address] Thomas MEDICAL HISTORY History of cataracts/status post cataract surgery, arthritis, osteoporosis, double vision right eye, left inner ear infection, TIAs, dizziness, numbness left side of the neck down to the left arm, atrial fibrillation, hyperlipidemia , hypercholesterolemia admitted for two falls striking her head and other fall striking her chin, felt dizzy and lightheaded prior to the fall. The patient states that she had a seizure as a child but outgrew them. MEDICATIONS 1. Lasix. 2. Potassium. 3. Coreg 4. Eliquis. DESCRIPTION The background activity is 8-9 Hz alpha located posterior bilateral and symmetrical with posterior to anterior gradient. There is excessive movement artifact during the recording. There is an electrode artifact at the right frontal region.Hyperventilation was omitted. Photic stimulation did not elicit a driving response. There were no electrographic seizures or epileptiform discharges noted during the recording. INTERPRETATION This is a normal awake EEG. The recording is contaminated with excess movement artifact and electrode artifact of the right frontal region contaminated with muscle movement artifact. There is electrode artifact at the right frontal region. There were no electrographic seizures or epileptiform discharges noted. Clinic correlation is recommended. MD AYLA Ya/ /7:42 PM /8:32 PM [facility]PITALHerman
[2017-12-03] VITALS: BP 112/54; PULSE 85; RESP 18; TEMP 98.3; O2SAT 93
[2017-12-03 06:59] LABS: AUTOMATED NEUTROPHIL # 1.8 TH/MM3 (1.8-7.7); BASOPHIL # 0.1 TH/MM3 (0-0.2); BASOPHIL % 1.4 % (0.0-2.0); EOSINOPHIL # 0.1 TH/MM3 (0-0.4); EOSINOPHIL % 2.8 % (0.0-4.0); HEMATOCRIT 30.6 % (35.0-46.0); HEMOGLOBIN 9.8 GM/DL (11.6-15.3); LYMPH % 44.2 % (9.0-44.0); MEAN CELL VOLUME 91.6 FL (80.0-100.0); MEAN CORPUSCULAR HEMOGLOBIN 29.2 PG (27.0-34.0); MEAN CORPUSCULAR HGB CONC 31.9 % (32.0-36.0); MONO % 12.4 % (0.0-8.0); MONOCYTE # 0.6 TH/MM3 (0-0.9); NEUT % 39.2 % (16.0-70.0); PLATELET COUNT 95 TH/MM3 (150-450); RED BLOOD COUNT 3.34 MIL/MM3 (4.00-5.30); RED CELL DISTRIBUTION WIDTH 12.6 % (11.6-17.2); WHITE BLOOD COUNT 4.6 TH/MM3 (4.0-11.0)
[2017-12-03 08:00] VITALS: BP 135/69; PULSE 64; PULSE 65; RESP 20; TEMP 97.9; O2SAT 96
[2017-12-03] MEDS ORDERED: RESP: ALBUTEROL 2.5 MG/IPRATROPIUM 0.5 MG NEB (SCH) NEB ONE (08:30)
--- NOTE | 2017-12-03 08:31 | PD.CARD.PN ---
Subjective Subjective Remarks Patient still feels like she is wheezing overnight. She did have an episode last night of heart fluttering. Single 6 beat run of NSVT overnight. No further episodes of lightheadedness, dizziness, or near syncope. No chest pain. (Mickey Dorado) Objective Medications Current Medications Medications (Trade) Dose Ordered Sig/Shawn Route Start Time Stop Time Status Last Admin (NS Flush) 2 ml UNSCH PRN IV FLUSH 12/01/17 17:30 (NS Flush) 2 ml BID IV FLUSH 12/01/17 21:00 12/01/17 20:54 Sodium Chloride 1,000 ml @ 84 mls/hr [id number] IV 12/01/17 20:00 12/02/17 14:56 (Coreg) 12.5 mg BID PO 12/01/17 21:00 12/02/17 21:37 (Lasix) 40 mg DAILY PO 12/02/17 09:00 Future Hold (KCl) 20 meq DAILY PO 12/02/17 09:00 12/02/17 10:22 (Pravachol) 40 mg DAILY PO 12/02/17 09:00 12/02/17 10:22 (Eliquis) 5 mg BID PO 12/01/17 21:00 12/02/17 21:38 Vital Signs / I&O Vital Signs Date Time Temp Pulse Resp B/P (MAP) Pulse Ox O2 Delivery O2 Flow Rate FiO2 12/03/17 00:00 98.3 85 18 112/54 (73) 93 12/02/17 20:00 100.3 98 18 127/60 (82) 95 12/02/17 20:00 80 12/02/17 16:00 100.1 80 18 111/52 (71) 95 12/02/17 15:31 85 12/02/17 12:00 98.8 68 20 109/57 (74) 92 12/02/17 09:00 97.2 81 20 116/66 (83) 93 12/02/17 08:37 92 21 I/O 12/02/17 12/02/17 12/02/17 12/03/17 12/03/17 12/03/17 07:00 15:00 23:00 07:00 15:00 23:00 Intake Total 725 ml 480 ml Balance 725 ml 480 ml Intake Oral 725 ml 480 ml # Voids 2 3 # Bowel Movements 0 Physical Exam GENERAL: Well-developed well-nourished. In no acute distress. NECK: No carotid bruits. No JVD. CARDIOVASCULAR: Regular rate and rhythm. No murmur appreciated. RESPIRATORY: No accessory muscle use. Clear to auscultation. Diffuse expiratory wheezing. MUSCULOSKELETAL: No clubbing or cyanosis. No edema. NEUROLOGICAL: Awake and alert. Normal speech. Laboratory Laboratory Tests Test 12/02/17 10:40 12/02/17 19:00 12/03/17 06:23 Urine Collection Type CLEAN CATCH Urine Color YELLOW Urine Turbidity CLEAR Urine pH 6.0 Urine Specific [place] GREATER THAN 1.035 Urine Protein NEG mg/dL Urine Glucose (UA) NEG mg/dL Urine Ketones TRACE mg/dL Urine Occult Blood NEG Urine Nitrite NEG Urine Bilirubin NEG Urine Leukocyte Esterase NEG Urine WBC 3-5 /hpf Urine Squamous Epithelial Cells 0-5 /hpf Microscopic Urinalysis Comment CULT NOT INDICATED White Blood Count 5.8 TH/MM3 4.6 TH/MM3 Red Blood Count 3.49 MIL/MM3 3.34 MIL/MM3 Hemoglobin 10.1 GM/DL 9.8 GM/DL Hematocrit 31.8 % 30.6 % Mean Corpuscular Volume 91.1 FL 91.6 FL Mean Corpuscular Hemoglobin 28.9 PG 29.2 PG Mean Corpuscular Hemoglobin Concent 31.7 % 31.9 % Red Cell Distribution Width 12.6 % 12.6 % Platelet Count 110 TH/MM3 95 TH/MM3 Mean Platelet Volume 8.2 FL 8.0 FL Neutrophils (%) (Auto) 48.5 % 39.2 % Lymphocytes (%) (Auto) 36.9 % 44.2 % Monocytes (%) (Auto) 11.5 % 12.4 % Eosinophils (%) (Auto) 1.9 % 2.8 % Basophils (%) (Auto) 1.2 % 1.4 % Neutrophils # (Auto) 2.7 TH/MM3 1.8 TH/MM3 Lymphocytes # (Auto) 2.2 TH/MM3 2.0 TH/MM3 Monocytes # (Auto) 0.7 TH/MM3 0.6 TH/MM3 Eosinophils # (Auto) 0.1 TH/MM3 0.1 TH/MM3 Basophils # (Auto) 0.1 TH/MM3 0.1 TH/MM3 CBC Comment DIFF FINAL AUTO DIFF Differential Comment AUTO DIFF CONFIRMED Platelet Estimate LOW Platelet Morphology Comment NORMAL Imaging Last Impressions Chest X-Ray 12/02/17 0000 Signed Impressions: Service Date/Time: November 08:29 - CONCLUSION: 1. No acute cardiopulmonary disease. Van Christensen MD Neck CTA 12/01/17 0000 Signed Impressions: Service Date/Time: Friday, December 01, 2017 22:46 - CONCLUSION: 1. No evidence of hemodynamic significant lesion. There is There is 20-30%% stenosis on the right and There is 10-20%% stenosis on the left. 2. There is 60-70%% stenosis in the distal left vertebral artery which is dominant. Fortino Nuno MD (Mickey Dorado) Assessment and Plan Assessment and Plan 81-year-old female with a past medical history of mild , A. fib, CAD status post CABG 07/07, history of CVA, CAD, HTN, HLD who presented after 2 near syncopal episodes Syncope: Suspect due to due to dehydration and orthostasis, hold Lasix. NSVT: 5 and 6 beat runs. Ischemic evaluation with Lexiscan. Atrial fibrillation: Rate controlled. Carvedilol and Eliquis. COPD exacerbation: Wheezing on exam. Chest x-ray clear. Start scheduled nebs. IV Solu-Medrol 1. ?Antibiotics per primary team. Valvular heart disease: Mild to moderate disease seen on echocardiogram including moderate AR. (Mickey Dorado) Assessment and Plan low risk stress test no ischemia normal ef no BB due to COPD. cont CCB will sign off call with further questions thanks (Anup Barragan MD) Mickey Dorado Dec 03, 2017 08:31 Anup Barragan MD Dec 03, 2017 15:00
[2017-12-03] MEDS ORDERED: methylPREDNISolone SOD SUCC 125 MG/2 ML VIAL IV PUSH ONE (09:00)
[2017-12-03] MEDS: POTASSIUM CHLORIDE 20 MEQ CONTROLLED RELEASE TAB PO SCH (09:45)
[2017-12-03] MEDS: CARVEDILOL 6.25 MG TAB PO SCH (09:45)
[2017-12-03] MEDS: PRAVASTATIN SOD 40 MG TAB PO SCH (09:45)
[2017-12-03] MEDS: SODIUM CHLORIDE 0.9% FLUSH 10 ML FLUSH IV FLUSH SCH (09:46)
[2017-12-03] MEDS: APIXABAN 5 MG TABLET PO SCH (09:54)
[2017-12-03] MEDS ORDERED: AZITHROMYCIN INJ 500 MG in SODIUM CHLOR 0.9% 250 ML INJ 250 ML IV SCH (11:00)
[2017-12-03] MEDS ORDERED: REGADENOSON INJ 0.4 MG/5 ML SYR IV ONE (11:10)
--- NOTE | 2017-12-03 11:55 | EKG ---
Date Performed: 12/01/2017 Time Performed: 18:17:25 PTAGE: 81 years EKG: ATRIAL FIBRILLATION SEPTAL MYOCARDIAL INFARCTION ABNORMAL ECG Compared to PREVIOUS TRACING , the pastient has devloped atrial fibrillation. The criteria for septal infarct are new. The minimal nonspecific ST-T wave changes are new. PREVIOUS TRACIN07/16/2016 06. 18 DOCTOR: Lidia Estes Interpretating Date/Time 12/03/2017 11:54:53
[2017-12-03 12:00] VITALS: BP 156/62; PULSE 76; RESP 20; TEMP 98.4; O2SAT 96
--- NOTE | 2017-12-03 12:32 | RADRPT ---
EXAM DATE/TIME: 12/03/2017 10:50 [facility] COMPARISON: No previous studies available for comparison. INDICATIONS : Two episodes of near syncope. Abnormal EKG. Atrial fibrillation. DOSE: 25.6 mCi Tc99m Myoview at stress. 8.6 mCi Tc99m Myoview at rest. 0.4 mg Lexiscan STRESS SYMPTOMS: Tired and hot. EJECTION FRACTION: 55% MEDICAL HISTORY : Stroke. Hypertension. Cardiovascular disease SURGICAL HISTORY : CABG Appendectomy. ENCOUNTER: Initial ACUITY: 1 day PAIN SCALE: 0/10 LOCATION: chest TECHNIQUE: The patient underwent pharmacologic stress with infusion of prescribed dose. Continuous ECG tracing was monitored during stress. Gated SPECT imaging was performed after stress and conventional SPECT i maging was performed at rest. The examination was performed on a SPECT/CT scanner, both attenuation and non-corrected datasets were reviewed. FINDINGS: DISTRIBUTION: The maximum perfused segment at stress is in the anteroseptal wall. PERFUSION STUDY: The pattern of perfusion at stress is within normal limits. GATED STUDY: There is intact wall motion and thickening without hypokinetic or dyskinetic segments. CONCLUSION: 1. No significant reversibility to suggest ischemia. 2. Normal wall motion with ejection fraction 55%. RISK CATEGORY: Low (<1% Annual Mortality Rate) Cristi Wise MD on December 03, 2017 at 12:27 Board Certified Radiologist. This report was verified electronically.
[2017-12-03] MEDS: SODIUM CHLOR 0.9% 1000 ML INJ 1,000 ML IV SCH (13:38)
[2017-12-03] MEDS ORDERED: RESP: ALBUTEROL 2.5 MG/IPRATROPIUM 0.5 MG NEB (SCH) NEB (14:00)
[2017-12-03 14:47] VITALS: O2SAT 97
[2017-12-03 16:00] VITALS: BP 133/73; PULSE 74; RESP 20; TEMP 98.1; O2SAT 97
--- NOTE | 2017-12-03 17:56 | HHI.PR ---
Subjective Remarks Feeling weak when she walked , felt it was because she had not eaten, no palpitations, no lightheadedness. Family at bedside and remind her she had had, nausea and emesis the day before she came in Objective Vitals Vital Signs Date Time Temp Pulse Resp B/P (MAP) Pulse Ox O2 Delivery O2 Flow Rate FiO2 12/03/17 14:47 97 21 12/03/17 12:00 98.4 76 20 156/62 (93) 96 12/03/17 08:00 97.9 65 20 135/69 (91) 96 12/03/17 08:00 64 12/03/17 00:00 98.3 85 18 112/54 (73) 93 12/02/17 20:00 100.3 98 18 127/60 (82) 95 12/02/17 20:00 80 12/03/17 12/03/17 12/04/17 15:00 23:00 07:00 Intake Total 250 ml Balance 250 ml IV Total 250 ml Result Diagram: 12/03/17 0623 12/02/17 0547 Imaging Last Impressions Myocardial Perfusion Scan Nuc Med 12/03/17 0000 Signed Impressions: Service Date/Time: Sunday, December 03, 2017 10:50 - CONCLUSION: 1. No significant reversibility to suggest ischemia. 2. Normal wall motion with ejection fraction 55%%. RISK CATEGORY: Low (<1%% Annual Mortality Rate) Cristi Wise MD Chest X-Ray 12/02/17 0000 Signed Impressions: Service Date/Time: November 08:29 - CONCLUSION: 1. No acute cardiopulmonary disease. Van Christensen MD Neck CTA 12/01/17 0000 Signed Impressions: Service Date/Time: Friday, December 01, 2017 22:46 - CONCLUSION: 1. No evidence of hemodynamic significant lesion. There is There is 20-30%% stenosis on the right and There is 10-20%% stenosis on the left. 2. There is 60-70%% stenosis in the distal left vertebral artery which is dominant. Fortino Nuno MD Last Impressions Chest X-Ray 12/02/17 0000 Signed Impressions: Service Date/Time: November 08:29 - CONCLUSION: 1. No acute cardiopulmonary disease. Van Christensen MD Neck CTA 12/01/17 0000 Signed Impressions: Service Date/Time: Friday, December 01, 2017 22:46 - CONCLUSION: 1. No evidence of hemodynamic significant lesion. There is There is 20-30%% stenosis on the right and There is 10-20%% stenosis on the left. 2. There is 60-70%% stenosis in the distal left vertebral artery which is dominant. Fortino Nuno MD Objective Remarks Lying in bed lungs cta hear rrr elle 2/6 +bs no c/c/e ecchymosis lower lip, post scalp A/P Problem List: (1) (aortic stenosis) ICD Codes: I35.0 - Nonrheumatic aortic (valve) stenosis Status: Chronic Plan: mild per echo with AR with severe thickening of leaflets (2) Blood loss anemia ICD Codes: D50.0 - Iron deficiency anemia secondary to blood loss (chronic) Status: Acute Plan: drop in hgb after multiple falls and laceration and hematoma of scalp monitor cbc (3) Syncope, near ICD Codes: R55 - Syncope and collapse Status: Acute Plan: cta unrevealing as to cause postive orthostatics this am, is on furosemide and had diarrhea yesterday, furosemide held, iv fluids had been ordered lexiscan in am was negative, it would appear this may have all been due to orthostatic hypotension from emesis and diarrhea (4) Multiple falls ICD Codes: R29.6 - Repeated falls Status: Acute Plan: PT eval done will need c for PT (5) Atrial fibrillation ICD Codes: I48.91 - Unspecified atrial fibrillation Status: Acute Plan: so far rate controlled started eliquis on eliquis (6) Wheezing ICD Codes: R06.2 - Wheezing Plan: per report in am with low grade fever at night, neg cxray started on solumedrol will d/c on medrol pack and zpack Problem Qualifiers (1) Atrial fibrillation: Qualified Codes: I48.2 - Chronic atrial fibrillation Adeola Thomas MD Dec 03, 2017 17:56
[2017-12-03] MEDS ORDERED: ALBUTEROL SULFATE 90 MCG/ACT HFA 8 GM INHALER INH SCH (18:00)
[2017-12-03] MEDS ORDERED: CARV6.25 PO (18:03)
[2017-12-03] MEDS ORDERED: APIX5TAB PO (18:03)
[2017-12-03] MEDS ORDERED: AZIT250T3 PO (18:03)
[2017-12-03] MEDS ORDERED: Albuterol Hfa Inh INH (18:03)
[2017-12-03] MEDS ORDERED: MEDR4PAK PO (18:03)
--- NOTE | 2017-12-03 18:07 | HHI.FF ---
Face to Face Verification Diagnosis: (1) Syncope, near (2) Multiple falls (3) Atrial fibrillation (4) Blood loss anemia Physical Therapy Order: Evaluate and Treat, Improve ambulation, Strength and gait training I have seen patient Zenia Hernandez on 12/03/17. My clinical findings support the need for the requested home health care services because: Deconditioned w/ increased weakness High risk of falls I certify that my clinical findings support that this patient is homebound because: Unsteady gait/balance Adeola Thomas MD Dec 03, 2017 18:07
[2017-12-03] MEDS ORDERED: ACETAMINOPHEN 325 MG TAB PO ONE (19:00)
--- NOTE | 2017-12-06 16:37 | HM ---
Date Performed: 12/03/2017 Time Performed: 16:39:00 HOOKUP DATE: 12/03/17 04:39:00 PM Fri ANALYSIS START TIME: 12/03/2017 4:44:00 PM ANALYSIS END TIME: 12/04/2017 4:48:00 PM PATIENT AGE: 81 PATIENT HEIGHT PATIENT WEIGHT: 156 DRUG LIST PATIENT DIAGNOSIS: syncope TEST NARRATIVE: The patient's average heart rate was 75 BPM. Heart rates greater than 120 B PM were noted < 1% of the time. Heart rates less than 50 BPM were noted < 1% of the time. No shelly ses exceeding 2.0 seconds were noted. 29 ventricular ectopics, which represented < 1% of the tota l beat count, were noted. The highest ventricular ectopic frequency occurred from 09:00 PM to 10:00 PM Fri. During this time 4 VE(s) occurred. Ventricular ectopics were observed as 29 isolated beat(s ) only. No couplets or runs were noted. No supraventricular ectopics were noted. No episodes of ST depression (defined as -1.0 mm or more) were noted in channel 1. No episodes of ST depression (defined as -1.0 mm or more) were noted in channel 2. No episodes of ST depression (defined as -1.0 mm or more) were noted in channel 3. no diary entries TEST INTERPRETATION: Holter monitor demonstrates atrial fibrillation with controlled ventricular response. Bradycardia to 49 bpm was noted at one episode, a rare PVC was also seen. Signed by : Fortino Keane
--- NOTE | 2017-12-08 09:21 | RSPPFT ---
DATE OF PROCEDURE: 12/02/17 COMMENTS: Spirometry with FVC of 1.3, FEV1 of 0.9, FEV1/FVC ratio at 74%. A positive but non-significant response to acutely inhaled bronchodilator noted. IMPRESSION: 1. Severe airways obstruction. 2. Positive but non-significant response to acutely inhaled bronchodilator.
== END 2017-12-03 20:02 | disposition home or self-care (01) ==
LOC: PHED 13:59 → PHEDA 15:00 → PH3B 16:20
PROVIDERS: ADMIT Legal Medicine; ATTEND Legal Medicine
DX: R55 Syncope and collapse (principal); S00.03XA Contusion of scalp, initial encounter; J44.1 Chronic obstructive pulmonary disease with (acute) exacerbation; I48.2 Chronic atrial fibrillation; I47.2 Ventricular tachycardia; I25.10 Atherosclerotic heart disease of native coronary artery without angina pectoris; I12.9 Hypertensive chronic kidney disease with stage 1 through stage 4 chronic kidney disease, or unspecified chronic kidney disease; E78.5 Hyperlipidemia, unspecified; D50.0 Iron deficiency anemia secondary to blood loss (chronic); N18.3 Chronic kidney disease, stage 3 (moderate); I35.0 Nonrheumatic aortic (valve) stenosis; E78.00 Pure hypercholesterolemia, unspecified; R29.6 Repeated falls; Z95.1 Presence of aortocoronary bypass graft; Z79.82 Long term (current) use of aspirin; Z79.02 Long term (current) use of antithrombotics/antiplatelets; Z86.73 Personal history of transient ischemic attack (TIA), and cerebral infarction without residual deficits; W19.XXXA Unspecified fall, initial encounter
CPT/HCPCS: 70498; 71045; 78452; 80048; 81001; 84484; 85025; 87040; 93005; 93017; 93225; 93226; 93306; 94060; 94640; 94664; 95819; 96361; 96365; 96375; 97110; 97116; 97162; 99285; A9502; G0378; G8987; G8988; J0456; J2785; J2930; J7030; J7050; Q9967

== ENCOUNTER 2017-12-24 09:44 | Emergency (ER) | payer MEDICARE ==
[~2017-12-24] VITALS: Ht 157.5 cm; Wt 75.0 kg
[~2017-12-24 09:44] MED LIST changes: -AMIO200 PO; -AMIO400T PO; +APIX5TAB PO; -ASPI-183 PO; +AZIT250T3 PO; +Albuterol Hfa Inh INH; -CARV3.125 PO; -ECASA PO; -FERR324T4 PO; -FURO1TAB60 PO; -FURO1TAB93 PO; +MEDR4PAK PO; -MULTTAB12 PO; -PANT40IN3 PO; -PLAV75TA PO; -PLAV75TA29 PO; -POTA-163 PO; -POTA20IN3 PO
[2017-12-24 09:49] VITALS: BP 174/80; PULSE 78; RESP 18; TEMP 97.8; O2SAT 97
[2017-12-24] MEDS ORDERED: LISI-515 PO (09:52)
[2017-12-24 10:17] LABS: AUTOMATED NEUTROPHIL # 3.2 TH/MM3 (1.8-7.7); BASOPHIL # 0.1 TH/MM3 (0-0.2); BASOPHIL % 1.4 % (0.0-2.0); EOSINOPHIL # 0.1 TH/MM3 (0-0.4); EOSINOPHIL % 1.6 % (0.0-4.0); HEMATOCRIT 28.8 % (35.0-46.0); HEMOGLOBIN 9.6 GM/DL (11.6-15.3); LYMPH % 27.1 % (9.0-44.0); LYMPHOCYTE # 1.4 TH/MM3 (1.0-4.8); MEAN CELL VOLUME 92.8 FL (80.0-100.0); MEAN CORPUSCULAR HEMOGLOBIN 30.9 PG (27.0-34.0); MEAN CORPUSCULAR HGB CONC 33.2 % (32.0-36.0); MEAN PLATELET VOLUME 7.1 FL (7.0-11.0); MONO % 5.7 % (0.0-8.0); MONOCYTE # 0.3 TH/MM3 (0-0.9); NEUT % 64.2 % (16.0-70.0); PLATELET COUNT 160 TH/MM3 (150-450); RED CELL DISTRIBUTION WIDTH 15.1 % (11.6-17.2); WHITE BLOOD COUNT 5.1 TH/MM3 (4.0-11.0)
--- NOTE | 2017-12-24 10:28 | PD ---
HPI Chief Complaint: Respiratory Symptoms Time Seen by Provider: 10:09 Travel History International Travel<30 days: No Contact w/Intl Traveler<30days: No Traveled to known affect area: No History of Present Illness HPI 82-year-old female complains of epigastric abdominal pain, chest wall discomfort , chest discomfort, and dyspnea on exertion. Patient states that the symptoms started about a month ago. Patient was admitted to [facility] December 01 discharged December 03 for syncope, aortic stenosis, anemia, multiple falls, and atrial fibrillation. Patient also has history of reactive airway disease. Patient has history of arthritis, atrial fibrillation, hyperlipidemia, TIA and hypertension. Patient states that she noticed some drooping on the right eyelid this morning. Patient states that the right eye drooping resolved after she arrived to the emergency room. Patient has a nuclear stress test done last month and was normal. Patient's on Eliquis. PFSH Past Medical History Hx Anticoagulant Therapy: Yes Arthritis: Yes Asthma: No Atrial Fibrillation: Yes Autoimmune Disease: No Heart Rhythm Problems: No Cancer: No Cardiovascular Problems: Yes High Cholesterol: Yes Chemotherapy: No Chest Pain: No Congestive Heart Failure: No COPD: No Cerebrovascular Accident: Yes (tia) Coronary Artery Disease: Yes Diabetes: No Diminished Hearing: No Endocrine: No Gastrointestinal Disorders: No GERD: No Genitourinary: No Headaches: No Hiatal Hernia: No Heparin Induced Thrombocytopen: No Hypertension: Yes Immune Disorder: No Implanted Vascular Access Dvce: No Kidney Stones: No Musculoskeletal: No Neurologic: No Psychiatric: No Reproductive: No Respiratory: No Immunizations Current: Yes Migraines: No Radiation Therapy: No Renal Failure: No Seizures: No Sickle Cell Disease: No Sleep Apnea: No Thyroid Disease: No Triglycerides - High: Yes Ulcer: No Influenza Vaccination: Yes ?: Not Menopausal: Yes Past Surgical History Abdominal Surgery: No AICD: No Appendectomy: Yes Arteriovenous Shunt: No Cardiac Surgery: No Ear Surgery: No Endocrine Surgery: No Eye Surgery: Yes (CATARACT) Genitourinary Surgery: No Gynecologic Surgery: No Insulin Pump: No Joint Replacement: No Neurologic Surgery: No Oral Surgery: No Pacemaker: No Thoracic Surgery: No Other Surgery: Yes (APPENDIX, BROKEN LEG, CATARACT SURGERY) Family History Family Hypercholesterolemia: Yes Social History Alcohol Use: No Tobacco Use: No ( A TEEN) Substance Use: No Allergies-Medications (Allergen,Severity, Reaction): Coded Allergies: No Known Allergies (Verified Allergy, Unknown, 12/24/17) Reported Meds & Prescriptions Reported Meds & Active Scripts Active Coreg (Carvedilol) 6.25 Mg Tab 12.5 Mg PO BID 30 Days Eliquis (Apixaban) 5 Mg Tab 5 Mg PO BID 30 Days Reported Lisinopril 20 Mg Tab 20 Mg PO BID NEB Simvastatin 20 Mg Tab 20 Mg PO DAILY Review of Systems General / Constitutional: No: Fever Eyes: No: Visual changes HENT: No: Headaches Cardiovascular: No: Chest Pain or Discomfort Respiratory: No: Shortness of Breath Gastrointestinal: No: Abdominal Pain Genitourinary: No: Dysuria Musculoskeletal: No: Pain Skin: No Rash Neurologic: No: Weakness Psychiatric: No: Depression Endocrine: No: Polydipsia Hematologic/Lymphatic: No: Easy Bruising Physical Exam Narrative GENERAL: Well-nourished, well-developed patient. SKIN: Focused skin assessment warm/dry. HEAD: Normocephalic. EYES: No scleral icterus. No injection or drainage. NECK: Supple, trachea midline. No JVD or lymphadenopathy. CARDIOVASCULAR: Regular rate and rhythm without murmurs, gallops, or rubs. RESPIRATORY: Breath sounds equal bilaterally. No accessory muscle use. GASTROINTESTINAL: Abdomen soft, nondistended. Patient has mild tenderness and palpation epigastric area. No rebound tenderness. No mass. MUSCULOSKELETAL: No cyanosis, or edema. BACK: Nontender without obvious deformity. No CVA tenderness. Neurologic exam normal. Data Data Last Documented VS Vital Signs Date Time Temp Pulse Resp B/P (MAP) Pulse Ox O2 Delivery O2 Flow Rate FiO2 12/24/17 13:25 70 18 168/85 (112) 97 Room Air 12/24/17 09:49 97.8 Orders Orders Electrocardiogram (12/24/17 10:06) Complete Blood Count With Diff (12/24/17 10:06) Basic Metabolic Panel (Bmp) (12/24/17 10:06) Ckmb (Isoenzyme) Profile (12/24/17 10:06) Troponin I (12/24/17 10:06) Chest, Single Ap (12/24/17 10:06) Iv Access Insert/Monitor (12/24/17 10:06) Ecg Monitoring (12/24/17 10:06) Oxygen Administration (12/24/17 10:06) Oximetry (12/24/17 10:06) B-Type Natriuretic Peptide (12/24/17 10:06) D-Dimer (12/24/17 10:41) Ct Pulmonary Angiogram (12/24/17 11:37) Iohexol 350 Inj (Omnipaque 350 Inj) (12/24/17 12:09) Labs Laboratory Tests Test 12/24/17 10:00 12/24/17 12:20 White Blood Count 5.1 TH/MM3 Red Blood Count 3.10 MIL/MM3 Hemoglobin 9.6 GM/DL Hematocrit 28.8 % Mean Corpuscular Volume 92.8 FL Mean Corpuscular Hemoglobin 30.9 PG Mean Corpuscular Hemoglobin Concent 33.2 % Red Cell Distribution Width 15.1 % Platelet Count 160 TH/MM3 Mean Platelet Volume 7.1 FL Neutrophils (%) (Auto) 64.2 % Lymphocytes (%) (Auto) 27.1 % Monocytes (%) (Auto) 5.7 % Eosinophils (%) (Auto) 1.6 % Basophils (%) (Auto) 1.4 % Neutrophils # (Auto) 3.2 TH/MM3 Lymphocytes # (Auto) 1.4 TH/MM3 Monocytes # (Auto) 0.3 TH/MM3 Eosinophils # (Auto) 0.1 TH/MM3 Basophils # (Auto) 0.1 TH/MM3 CBC Comment DIFF FINAL Differential Comment Blood Urea Nitrogen 16 MG/DL Creatinine 0.70 MG/DL Random Glucose 120 MG/DL Calcium Level 8.3 MG/DL Sodium Level 143 MEQ/L Potassium Level 4.0 MEQ/L Chloride Level 112 MEQ/L Carbon Dioxide Level 25.5 MEQ/L Anion Gap 6 MEQ/L Estimat Glomerular Filtration Rate 80 ML/MIN Total Creatine Kinase 21 U/L Troponin I LESS THAN 0.02 NG/ML B-Type Natriuretic Peptide 475 PG/ML D-Dimer Quantitative (PE/DVT) 2.05 MG/L FEU [facility] Medical Decision Making Medical Screen Exam Complete: Yes Emergency Medical Condition: Yes Interpretation(s) Last Impressions CT Angiography 12/24/17 8337 Signed Impressions: Service Date/Time: Sunday, December 24, 2017 12:00 - CONCLUSION: 1. No PE is identified. 2. There are small bilateral pleural effusions with associated atelectasis. 3. There is a 3 mm noncalcified pulmonary nodule in the left upper lobe. 4. Cardiomegaly with enlargement of the right heart and reflux of contrast into the IVC and hepatic veins. These findings suggest elevated right heart pressures or tricuspid regurgitation. There is severe coronary artery calcification. 5. Mildly aneurysmal ascending and descending thoracic aorta. Abbe Lilly MD Chest X-Ray 12/24/17 1006 Signed Impressions: Service Date/Time: Sunday, December 24, 2017 10:27 - CONCLUSION: 1. Probable small right pleural effusion. 2. Cardiomegaly and previous CABG. Markel Cantor MD 1315 p.m. CBC with hemoglobin 9.6 hematocrit 28.8. GFR 80. Cardiac enzymes are normal. BNP 475. Differential Diagnosis Differential diagnosis including angina, NM, PE, pneumothorax, gastritis, PUD. Patient had transient mild drooping of the right eyelid this morning. That resolved completely now. Narrative Course 82-year-old female with epigastric abdominal pain, shortness of breath on exertion. Diagnosis Primary Impression: Abdominal pain Qualified Codes: R10.13 - Epigastric pain Additional Impression: Dyspnea Qualified Codes: R06.09 - Other forms of dyspnea Patient Instructions: General Instructions Additional Instructions: Continue with medications as directed. Follow-up with personal physician. Return if worse. Med/Other Pt SpecificInfo: No Change to Meds Disposition: 01 DISCHARGE HOME Condition: Stable Pool Boyle MD Dec 24, 2017 10:28
[2017-12-24 10:31] LABS: CHLORIDE 112 MEQ/L (98-107); SODIUM (NA) 143 MEQ/L (136-145)
[2017-12-24 10:32] VITALS: BP 140/59; PULSE 78; RESP 18; O2SAT 98
[2017-12-24 10:34] LABS: CALCIUM 8.3 MG/DL (8.5-10.1)
[2017-12-24 10:35] LABS: BICARBONATE 25.5 MEQ/L (21.0-32.0); BLOOD UREA NITROGEN 16 MG/DL (7-18); GLUCOSE,RANDOM 120 MG/DL (74-106)
--- NOTE | 2017-12-24 10:37 | RADRPT ---
EXAM DATE/TIME: 12/24/2017 10:27 [facility] COMPARISON: No previous studies available for comparison. INDICATIONS : Short of breath and chest pain MEDICAL HISTORY : Stroke. Hypertension. Cardiovascular disease SURGICAL HISTORY : CABG. Appendectomy. ENCOUNTER: Initial ACUITY: 1 month PAIN SCORE: 8/10 LOCATION: middle chest FINDINGS: A single view of the chest demonstrates the lungs to be symmetrically aerated without evidence of mas s or infiltrate. Cardiomegaly. Previous CABG. Blunting of the right costophrenic angle. The cardiome diastinal contours are unremarkable. Osseous structures are intact. CONCLUSION: 1. Probable small right pleural effusion. 2. Cardiomegaly and previous CABG. Markel Cantor MD on December 24, 2017 at 10:33 Board Certified Radiologist. This report was verified electronically.
[2017-12-24 10:38] LABS: GLOMERULAR FILTRATION RATE 80 ML/MIN (>89)
[2017-12-24 10:42] LABS: TROPONIN I LESS THAN 0.02 NG/ML (0.02-0.05)
[2017-12-24 10:50] VITALS: BP 107/60; PULSE 67; RESP 16; O2SAT 96
[2017-12-24 11:50] VITALS: BP 165/91; PULSE 87; RESP 14; O2SAT 96
[2017-12-24] MEDS ORDERED: IOHEXOL 350 MG/ML 10 ML VIAL (for RAD DIAG) IVCONTRAST ONE (12:09)
--- NOTE | 2017-12-24 12:34 | RADRPT ---
EXAM DATE/TIME: 12/24/2017 12:00 [facility] COMPARISON: No previous studies available for comparison. INDICATIONS : Short of breath. Lower chest pain. IV CONTRAST: 75 cc Omnipaque 350 (iohexol) IV RADIATION DOSE: 12.68 CTDIvol (mGy) MEDICAL HISTORY : Cardiovascular disease. Cerebrovascular disease. Hypertension. SURGICAL HISTORY : CABG Appendectomy. ENCOUNTER: Initial ACUITY: 1 month PAIN SCALE: 7/10 LOCATION: Bilateral chest TECHNIQUE: Volumetric scanning of the chest was performed using a pulmonary embolism protocol MIP images were re constructed. Using automated exposure control and adjustment of the mA and/or kV according to patien t size, radiation dose was kept as low as reasonably achievable to obtain optimal diagnostic quality images. DICOM format image data is available electronically for review and comparison. Follow-up recommendations for detected pulmonary nodules are based at a minimum on nodule size and pa tient risk factors according to Fleischner Society Guidelines. FINDINGS: PULMONARY ARTERIES: No filling defects are seen in the pulmonary arteries through the segmental level. LUNGS: There is no consolidation or pneumothorax . In the left upper lobe there is a 3 mm noncalcified pulmo nary nodule and a 3 mm calcified pulmonary nodule. Mild respiratory motion artifact is present. Compr essive atelectasis is present in the lung bases bilaterally. PLEURAE: There are small bilateral pleural effusions. MEDIASTINUM: The heart is enlarged with severe coronary artery calcification severe calcification of the mitral an nulus and aorta. Ascending aorta is aneurysmal measuring up to 4.3 cm and descending thoracic aorta i s aneurysmal measuring up to 3.2 cm. No lymphadenopathy is visualized. There is reflux of contrast in to the hepatic veins and IVC. MUSCULOSKELETAL: There are degenerative changes of the thoracic spine and patient is post median sternotomy. MISCELLANEOUS: The visualized upper abdominal organs demonstrate no acute abnormality. CONCLUSION: 1. No PE is identified. 2. There are small bilateral pleural effusions with associated atelectasis. 3. There is a 3 mm noncalcified pulmonary nodule in the left upper lobe. 4. Cardiomegaly with enlargement of the right heart and reflux of contrast into the IVC and hepatic v eins. These findings suggest elevated right heart pressures or tricuspid regurgitation. There is tristen re coronary artery calcification. 5. Mildly aneurysmal ascending and descending thoracic aorta. Abbe Lilly MD on December 24, 2017 at 12:25 Board Certified Radiologist. This report was verified electronically.
[2017-12-24 13:25] VITALS: BP 168/85; PULSE 70; RESP 18; O2SAT 97
--- NOTE | 2017-12-24 21:55 | EKG ---
Date Performed: 12/24/2017 Time Performed: 09:50:45 PTAGE: 82 years EKG: ATRIAL FIBRILLATION WITH CONTROLLED VENTRICULAR RATE NONDIAGNOSTIC Q WAVES IN THE INFERIOR LEADS SLIGHT NONSPECIFIC ST-T WAVE CHANGES Compared to previous tracing, R wave progression improved ABNORMAL RHYTHM ECG PREVIOUS TRACING : 12/01/2017 18.17 DOCTOR: Daniel Hernandez Interpretating Date/Time 12/24/2017 21:53:46
== END 2017-12-24 14:00 | disposition home or self-care (01) ==
LOC: PHED 09:44
DX: R10.13 Epigastric pain (principal); R06.02 Shortness of breath; E78.00 Pure hypercholesterolemia, unspecified; I10 Essential (primary) hypertension; I25.10 Atherosclerotic heart disease of native coronary artery without angina pectoris; I48.91 Unspecified atrial fibrillation; Z79.01 Long term (current) use of anticoagulants
CPT/HCPCS: 71045; 71275; 80048; 82550; 83880; 84484; 85025; 85379; 93005; 99285; Q9967

== ENCOUNTER → 2018-01-26 | Outpatient (CLI) | payer MEDICARE ==
[~2018-01-26] MED LIST changes: -AZIT250T3 PO; -Albuterol Hfa Inh INH; +LISI-515 PO; -MEDR4PAK PO; -MULTIVITAMIN
--- NOTE | 2018-01-27 07:20 | RSPPFT ---
DATE OF PROCEDURE: 01/26/18 COMMENTS: Spirometry shows FVC of 1.5 at 67% of predicted; FEV1 of 1.0 at 66%, FEV1/FVC ratio is decreased. Flow is decreased at FEF 25, FEF 50, FEF 75, and FEF 25-75. No response after bronchodilator treatment. Lung volumes show residual volume is decreased. TLC is decreased. Diffusion capacity is normal. Flow volume loop indicates an obstructive pattern. Room air arterial blood gases show pH of 7.44, PCO2 of 36, PO2 of 91, BiCarb of 24 and O2 Saturation at 96%. IMPRESSION: 1. Moderately severe obstructive lung disease. 2. No response after bronchodilator treatment. 3. Additional restrictive lung disease. 4. Decreased lung volumes. 5. Normal diffusion capacity. 6. Blood gases show normal oxygenation on room air.
== END ==
LOC: PHRSP 08:24
PROVIDERS: ATTEND Specialist
DX: J44.9 Chronic obstructive pulmonary disease, unspecified (principal); R06.00 Dyspnea, unspecified; R09.02 Hypoxemia
CPT/HCPCS: 36600; 82805; 94060; 94726; 94729